=== PATIENT | male | born 1995 | race Caucasian/White ===

== ENCOUNTER 2019-03-07 11:15 | Emergency (ER) | payer SELFPAY ==
[~2019-03-07] VITALS: Ht 180.3 cm; Wt 94.5 kg
[2019-03-07 11:26] VITALS: BP 134/85
[2019-03-07] MEDS ORDERED: LIDOcaine 1% w/epiNEPHrine 1:200,000 30ml vial IM ONE (12:50)
== END 2019-03-07 14:06 | disposition home or self-care (01) ==
LOC: ER 11:16
DX: S01.81XA Laceration without foreign body of other part of head, initial encounter (principal); Z88.1 Allergy status to other antibiotic agents; W22.8XXA Striking against or struck by other objects, initial encounter; Y93.89 Activity, other specified; Y92.89 Other specified places as the place of occurrence of the external cause; Y99.8 Other external cause status
CPT/HCPCS: 12011; 99283